=== PATIENT | female | born 1970 | race Asian ===

== ENCOUNTER 2018-04-04 13:42 | Emergency (ER) | payer SELFPAY, OTHER ==
[2018-04-04] MEDS: IPRATROPIUM (NEB) 0.5 MG/2.5 ML AMP HHN (14:46)
[2018-04-04] MEDS: ALBUTEROL 0.083% (NEB) 2.5 MG/3 ML AMP HHN (14:46)
[2018-04-04] MEDS: DEXAMETHASONE 10 MG/ML 1 ML INJ IM (14:51)
== END 2018-04-04 15:39 | disposition left against medical advice (07) ==
LOC: FTE 15:39
DX: J45.901 Unspecified asthma with (acute) exacerbation (principal)
CPT/HCPCS: 94664; 96372; 99284-25

== ENCOUNTER 2018-08-01 05:39 | Inpatient (IN) | payer OTHER ==
[2018-08-01] MEDS ORDERED: LACTATED RINGER'S 1,000 ML IV* (06:00)
[2018-08-01] MEDS: traMADol 50 MG TAB PO (06:03)
[2018-08-01] MEDS: DEXAMETHASONE 1 MG TAB PO (06:03)
[2018-08-01] MEDS: GABAPENTIN 300 MG CAP PO ×2 (06:03→21:00)
[2018-08-01] MEDS: CEFAZOLIN 2 GM/50 ML (PMX) 50 ML IVPB (06:16)
[2018-08-01] MEDS: CA CHLORIDE 10% 10 ML SYRINGE (07:04)
[2018-08-01] MEDS: THROMBIN 5000 UNIT VIAL (07:04)
[2018-08-01] MEDS ORDERED: MIDAZOLAM 1 MG/ML 2 ML INJ (07:05)
[2018-08-01] MEDS ORDERED: PROPOFOL 20 ML (07:05)
[2018-08-01] MEDS ORDERED: DEXAMETHASONE 4 MG/ML 1 ML INJ (07:05)
[2018-08-01] MEDS ORDERED: NEOSTIGMINE 3 MG/3 ML SYRINGE (07:05)
[2018-08-01] MEDS ORDERED: CEFAZOLIN 1 GM INJ (07:05)
[2018-08-01] MEDS ORDERED: ONDANSETRON 4 MG INJ (07:05)
[2018-08-01] MEDS ORDERED: ROCURONIUM 50 MG INJ (07:05)
[2018-08-01] MEDS ORDERED: FENTAnyl 50 MCG/ML VIAL (07:05)
[2018-08-01] MEDS ORDERED: GLYCOPYRROLATE 0.4 MG INJ (07:05)
[2018-08-01] MEDS ORDERED: morphine SULFATE/PF (10 MG/10 ML) INJ ×2 (07:06→08:42)
[2018-08-01] MEDS ORDERED: BUPIVACAINE 0.75%/DEXT (SPINAL) 2 ML INJ ×2 (07:06→08:42)
[2018-08-01] MEDS: TRANEXAMIC ACID 1,000 MG in DEXTROSE 5% 100 ML IVPB (07:30)
[2018-08-01] MEDS ORDERED: PHENYLephrine (100 MCG/ML) 5ML SYG (07:44)
[2018-08-01] MEDS: POLYMYXIN/BACITRACIN 1L IRRIG (07:55)
[2018-08-01] MEDS: BUPIVACAINE 0.5% (SDV) 30 ML, morphine SULFATE (PF) 8 MG, EPINEPHrine 0.3 MG, KETOROLAC... IRR (07:55)
[2018-08-01] MEDS: SOD CHLORIDE 0.9% 100 ML, TRANEXAMIC ACID 3,000 MG IRR (07:56)
[2018-08-01] MEDS ORDERED: SUGAMMADEX SODIUM 200 MG/2 ML VIAL IV (08:49)
[2018-08-01] MEDS ORDERED: DIPHENHYDRAMINE 50 MG INJ IV (09:00)
[2018-08-01] MEDS ORDERED: KETOROLAC 15 MG INJ IV (09:00)
[2018-08-01] MEDS ORDERED: ZOLPIDEM 5 MG TAB PO (09:00)
[2018-08-01] MEDS ORDERED: MAGNESIUM HYDROXIDE 30ML CUP PO (09:00)
[2018-08-01] MEDS ORDERED: ACETAMINOPHEN 500 MG TAB PO (09:00)
[2018-08-01] MEDS ORDERED: OXYCODONE/ACETAMINOPHEN (5/325) TAB PO ×3 (09:00→09:30)
[2018-08-01] MEDS ORDERED: morphine 2 MG INJ IV ×2 (09:00)
[2018-08-01] MEDS: SENNA/DOCUSATE NA (8.6MG/50MG) TAB PO ×2 (09:00→21:00)
[2018-08-01] MEDS: TRANEXAMIC ACID 1,000 MG in DEXTROSE 5% 100 ML IV (09:27)
[2018-08-01] MEDS ORDERED: ALBUTEROL 0.083% (NEB) 2.5 MG/3 ML AMP HHN (09:30)
[2018-08-01] MEDS ORDERED: LABETALOL HCL 20MG INJ IV (09:30)
[2018-08-01] MEDS ORDERED: TRIMETHOBENZAMIDE 100 MG/ML VIAL IM (09:30)
[2018-08-01] MEDS ORDERED: IPRATROPIUM (NEB) 0.5 MG/2.5 ML AMP HHN (09:30)
[2018-08-01] MEDS ORDERED: HYDROmorphONE 1 MG/5 ML IV SYRINGE IV ×3 (09:30)
[2018-08-01] MEDS ORDERED: MIDAZOLAM 1 MG/ML 2 ML INJ IV (09:30)
[2018-08-01] MEDS ORDERED: NALOXONE (0.4 MG/ML) INJ IV (09:30)
[2018-08-01] MEDS ORDERED: hydrALAzine 20 MG INJ IV (09:30)
[2018-08-01] MEDS ORDERED: MEPERIDINE 25 MG INJ IV (09:30)
[2018-08-01] MEDS ORDERED: FENTAnyl 50 MCG/ML VIAL IV ×3 (09:30)
[2018-08-01] MEDS ORDERED: EPHEDrine SULFATE 50 MG/5 ML SYG IV (09:30)
[2018-08-01] MEDS: ONDANSETRON 4 MG INJ IV ×3 (09:46→20:29)
[2018-08-01] MEDS: DIPHENHYDRAMINE 50 MG INJ IV (09:47)
[2018-08-01] MEDS: LACTATED RINGER'S 1,000 ML IV ×3 (09:47→21:00)
[2018-08-01] MEDS: CEFAZOLIN 1 GM/50 ML (PMX) 50 ML IVPB ×2 (09:47→16:37)
[2018-08-01] MEDS: DEXAMETHASONE 2 MG TAB PO ×2 (11:58→18:00)
[2018-08-01 12:14] LABS: HEMATOCRIT 33.4 % (37.0-47.0); HEMOGLOBIN 10.5 g/dl (12.0-16.0); MEAN CORPUSCULAR HEMOGLOBIN 28.8 pg (29.0-33.0); MEAN CORPUSCULAR HGB CONC 31.4 g/dl (32.0-37.0); MEAN CORPUSCULAR VOLUME 91.5 fl (82.0-101.0); MEAN PLATELET VOLUME 9.5 fl (7.4-10.4); PLATELET COUNT 324 10^3/UL (140-415); RED BLOOD COUNT 3.65 10^6/ul (4.20-5.40); RED CELL DISTRIBUTION WIDTH 13.2 % (11.5-14.5)
[2018-08-01 12:16] LABS: ADD MAN DIFF? YES; POSITIVE DIFF @See below
[2018-08-01 13:53] LABS: BAND NEUTROPHILS #M 1.9 10^3/ul (0.0-0.6); BAND NEUTROPHILS % (M) 11 % (0-4); LYMPHOCYTES #M 1.2 10^3/ul (0.8-2.9); LYMPHOCYTES % (M) 7 % (15-51); MONOCYTE #M 0.1 10^3/ul (0.3-0.9); MONOCYTES % (M) 1 % (0-11); PLATELET ESTIMATE NORMAL; SEG NEUT #M 14.9 10^3/ul (1.6-7.5); SEGMENTED NEUTROPHILS (M) % 81 % (39-77); SMUDGE%M 13 % (0-0)
[2018-08-01] MEDS ORDERED: DEXTROSE 50% 50 ML SYRINGE IV ×2 (16:30)
[2018-08-01] MEDS ORDERED: GLUCAGON 1 MG INJ IM (16:30)
[2018-08-01] MEDS ORDERED: GLUCOSE GEL 15 GRAM TUBE PO ×2 (16:30)
[2018-08-01] MEDS ORDERED: GLUCOSE GEL 15 GRAM TUBE BUCCAL (16:30)
[2018-08-01] MEDS: ATORVASTATIN 20 MG TAB PO (21:00)
[2018-08-01] MEDS: MONTELUKAST 10 MG TAB PO (21:00)
[2018-08-02] MEDS: DEXAMETHASONE 2 MG TAB PO ×2 (00:12→05:58)
[2018-08-02] MEDS: CEFAZOLIN 1 GM/50 ML (PMX) 50 ML IVPB (00:58)
[2018-08-02] MEDS: LACTATED RINGER'S 1,000 ML IV ×2 (04:55→14:55)
[2018-08-02 05:37] LABS: HEMATOCRIT 28.3 % (37.0-47.0); HEMOGLOBIN 8.9 g/dl (12.0-16.0); MEAN CORPUSCULAR HEMOGLOBIN 28.3 pg (29.0-33.0); MEAN CORPUSCULAR HGB CONC 31.4 g/dl (32.0-37.0); MEAN CORPUSCULAR VOLUME 90.1 fl (82.0-101.0); MEAN PLATELET VOLUME 9.9 fl (7.4-10.4); PLATELET COUNT 286 10^3/UL (140-415); RED BLOOD COUNT 3.14 10^6/ul (4.20-5.40)
[2018-08-02 05:37] LABS: WHITE BLOOD COUNT 13.7 10^3/ul (4.8-10.8)
[2018-08-02 05:41] LABS: ADD MAN DIFF? YES; POSITIVE DIFF @See below
[2018-08-02] MEDS: ONDANSETRON 4 MG INJ IV (05:58)
[2018-08-02] MEDS: PANTOPRAZOLE (EC) 40 MG TAB PO (05:58)
[2018-08-02] MEDS: OXYCODONE/ACETAMINOPHEN (5/325) TAB PO (08:50)
[2018-08-02] MEDS: ASPIRIN 81 MG TAB PO (08:50)
[2018-08-02] MEDS: metFORMIN 500 MG TAB PO (08:50)
[2018-08-02] MEDS: SENNA/DOCUSATE NA (8.6MG/50MG) TAB PO (08:50)
[2018-08-02] MEDS: LISINOPRIL 10 MG TAB PO (08:50)
[2018-08-02 09:11] LABS: BAND NEUTROPHILS #M 0.5 10^3/ul (0.0-0.6); BAND NEUTROPHILS % (M) 4 % (0-4); GIANT THROMBO% (M) 1 % (0-0); HYPOCHROMASIA 1+ (0-0); LYMPHOCYTES % (M) 8 % (15-51); MONOCYTE #M 0.8 10^3/ul (0.3-0.9); MONOCYTES % (M) 6 % (0-11); PLATELET ESTIMATE NORMAL; PROMYELOCYTES #M 0.2 10^3/ul (0-0); PROMYELOCYTES % (M) 2 % (0-0); SEGMENTED NEUTROPHILS (M) % 80 % (39-77); SMUDGE%M 3 % (0-0)
== END 2018-08-02 18:35 | disposition home or self-care (01) | DRG 470 ==
LOC: REC 05:39 → MS1 10:43
PROVIDERS: Orthopaedic Surgery
PROC: 0SRB04A Replacement of Left Hip Joint with Ceramic on Polyethylene Synthetic Substitute, Uncemented, Open Approach (ICD-10-PCS; principal; 2018-08-01 07:00)
DX: M16.52 Unilateral post-traumatic osteoarthritis, left hip (principal); E11.9 Type 2 diabetes mellitus without complications; E66.9 Obesity, unspecified; J45.909 Unspecified asthma, uncomplicated; K21.9 Gastro-esophageal reflux disease without esophagitis; Z79.84 Long term (current) use of oral hypoglycemic drugs; Z68.31 Body mass index [BMI] 31.0-31.9, adult
CPT/HCPCS: 72170; 73530; 82962; 85025; 86850; 86900; 86901; 86999; 87086; 88304; 88311; 97110; 97116; 97161; 97530

== ENCOUNTER 2019-04-18 06:05 | Day surgery (SDC) | payer OTHER ==
[2019-04-18] MEDS ORDERED: PROPOFOL 200 MG INJ (07:00)
[2019-04-18] MEDS ORDERED: MIDAZOLAM 1 MG/ML 2 ML INJ (07:55)
[2019-04-18] MEDS ORDERED: FENTAnyl 50 MCG/ML VIAL (07:55)
[2019-04-18] MEDS ORDERED: PROPOFOL 40 ML (07:55)
[2019-04-18] MEDS ORDERED: LIDOCAINE 2% (SDV) 5 ML INJ (07:55)
[2019-04-18] MEDS ORDERED: PHENYLephrine (100 MCG/ML) 10ML SYG (08:13)
== END 2019-04-18 15:56 | disposition home or self-care (01) ==
LOC: GIL 06:05
DX: Z12.11 Encounter for screening for malignant neoplasm of colon (principal); K64.8 Other hemorrhoids; E11.9 Type 2 diabetes mellitus without complications; Z79.84 Long term (current) use of oral hypoglycemic drugs
CPT/HCPCS: 45378; 82962; 84703